=== PATIENT | female | born 1990 | race Caucasian/White ===

== ENCOUNTER 2017-06-01 18:25 | Inpatient (IN) | payer BC, MEDICAID ==
[2017-06-01] MEDS ORDERED: Misoprostol 200 MCG Tab PO PRN (19:24)
[2017-06-01] MEDS ORDERED: Methylergonovine 0.2 MG/1 ML Amp IM PRN (19:24)
[2017-06-01] MEDS ORDERED: Nalbuphine 10 MG/1 ML Vial IVPUSH PRN (19:24)
[2017-06-01] MEDS ORDERED: Water For Irrigation,Sterile 1,000 ML Container IRR PRN (19:24)
[2017-06-01] MEDS ORDERED: Lidocaine 1% 50 ML MDV INJECT PRN (19:24)
[2017-06-01] MEDS ORDERED: Sodium Chloride 0.9% 10 ML Syringe FLUSH PRN (19:24)
[2017-06-01] MEDS ORDERED: Carboprost Tromethamine 250 MCG/1 ML Amp IM PRN (19:24)
[2017-06-01] MEDS ORDERED: Butorphanol 1 MG/ML SDV IVPUSH PRN (19:24)
[2017-06-01] MEDS ORDERED: Sodium Chloride 0.9% 2.5 ML Syringe FLUSH PRN (19:24)
[2017-06-01] MEDS ORDERED: Oxytocin/0.9 % Sodium Chloride 30 UNIT/500 ML BAG IV SCH (19:30)
[2017-06-01] MEDS: Lactated Ringers 1,000 ML IV SCH ×4 (20:10→23:17)
[2017-06-01] MEDS ORDERED: Ropivacaine 0.2% 2 MG/ML 20 ML SDV ONE (20:43)
[2017-06-01] MEDS ORDERED: Ropivacaine HCl/PF 100 ML ONE (20:43)
[2017-06-01] MEDS ORDERED: fentaNYL 100 MCG/2 ML SDV ONE (20:43)
--- NOTE | 2017-06-01 21:10 | PCM.PREANE ---
Preanesthetic Assessment - Procedure Proposed Procedure: epidural - Anesthesia/Transfusion/Family Hx Anesthesia History: Prior Anesthesia Without Reaction Family History of Anesthesia Reaction: No - Review of Systems Other: Reports: None - Physical Assessment Height: 5 ft 4 in Weight: 76.204 kg ASA Class: 2 Mental Status: Alert & Oriented x3 Airway Class: Mallampati = 1 Dentition: Reports: Normal Dentition Thyro-Mental Finger Breadths: 3 Mouth Opening Finger Breadths: 3 ROM/Head Extension: Full - Lab Values: Laboratory Last Values WBC 14.24 K/uL (4.0-11.0) H 06/01/17 19:39 RBC 3.90 M/uL (4.30-5.90) L 06/01/17 19:39 Hgb 12.5 g/dL (12.0-16.0) 06/01/17 19:39 Hct 36.4 % (36.0-46.0) 06/01/17 19:39 MCV 93.3 fL (80.0-98.0) 06/01/17 19:39 MCH 32.1 pg (27.0-32.0) H 06/01/17 19:39 MCHC 34.3 g/dL (31.0-37.0) 06/01/17 19:39 RDW Std Deviation 48.9 fl (28.0-62.0) 06/01/17 19:39 RDW Coeff of Randal 14 % (11.0-15.0) 06/01/17 19:39 Plt Count 208 K/uL (150-400) 06/01/17 19:39 MPV 10.10 fL (7.40-12.00) 06/01/17 19:39 Nucleated RBC % 0.0 /100WBC 06/01/17 19:39 Nucleated RBCs # 0 K/uL 06/01/17 19:39 Membrane Rupture POSITIVE 06/01/17 18:40 Blood Type O NEGATIVE 06/01/17 19:39 Antibody Screen NEGATIVE 06/01/17 19:39 - Allergies Allergies/Adverse Reactions: Allergies Allergy/AdvReac Type Severity Reaction Status Date / Time No Known Allergies Allergy Verified 06/01/17 18:54 - Blood Blood Available: Yes Product(s) Available: PRBC - Acknowledgements Anesthesia Type Planned: Epidural Pt an Appropriate Candidate for the Planned Anesthesia: Yes Alternatives and Risks of Anesthesia Discussed w Pt/Guardian: Yes Pt/Guardian Understands and Agrees with Anesthesia Plan: Yes PreAnesthesia Questionnaire - Past Surgical History Other Musculoskeletal Surgeries/Procedures:: 2 acl repairs - HOME MEDS Home Medications: Home Meds PNV95/Ferrous Fumarate/FA [ Tablet] 1 each PO 06/01/17 [History] valACYclovir [Valtrex] 1,000 mg PO DAILY 06/01/17 [History] - CURRENT (IN HOUSE) MEDS Current Meds: Current Medications Butorphanol Tartrate (Stadol) 1 mg IVPUSH Q1H PRN PRN Reason: Pain Carboprost Tromethamine (Hemabate Ds) 250 mcg IM ASDIRECTED PRN PRN Reason: Post Hemorrhage Lactated Ringer's (Ringers, Lactated) 1,000 mls @ 150 mls/hr IV ASDIRECTED SHILPI Last Admin: 06/01/17 21:04 Dose: 150 mls/hr Oxytocin/Sodium Chloride (Oxytocin 30 Unit/500 Ml-Ns) 30 unit in 500 mls @ 2 mls/hr IV TITRATE [facility] Lidocaine HCl (Xylocaine 1%) 50 ml INJECT .ONCE PRN PRN Reason: Laceration repair Methylergonovine Maleate (Methergine) 0.2 mg IM ASDIRECTED PRN PRN Reason: Post Hemorrhage Misoprostol (Cytotec) 200 mcg PO .ONCE PRN PRN Reason: Post Hemorrhage Nalbuphine HCl (Nubain) 10 mg IVPUSH Q1H PRN PRN Reason: Pain (severe 7-10) Sodium Chloride (Saline Flush) 10 ml FLUSH ASDIRECTED PRN PRN Reason: Keep Vein Open Sodium Chloride (Saline Flush) 2.5 ml FLUSH ASDIRECTED PRN PRN Reason: Keep Vein Open Sterile Water (Sterile Water For Irrigation) 1,000 ml IRR ASDIRECTED PRN PRN Reason: delivery Discontinued Medications Fentanyl (Sublimaze) Confirm Administered Dose 200 mcg .ROUTE .STK-MED ONE Stop: 06/01/17 20:44 Ropivacaine (Naropin 0.2%) Confirm Administered Dose 100 mls @ as directed .ROUTE .STK-MED ONE Stop: 06/01/17 20:44 Ropivacaine (Naropin 0.2%) Confirm Administered Dose 20 ml .ROUTE .STK-[facility] ONE Stop: 06/01/17 20:44
[2017-06-02] MEDS ORDERED: Lanolin 100% Cream 7 GM Tube TOP PRN (02:40)
[2017-06-02] MEDS ORDERED: Ibuprofen 400 MG Tab PO PRN (02:40)
[2017-06-02] MEDS ORDERED: oxyCODONE 5 MG Tab PO PRN (02:40)
[2017-06-02] MEDS ORDERED: Docusate Sodium 100 MG Cap PO PRN (02:40)
[2017-06-02] MEDS ORDERED: Acetaminophen 500 MG Tab PO PRN ×2 (02:40)
[2017-06-02] MEDS ORDERED: Witch Hazel Medicated Pads 40/Jar TOP PRN (02:40)
[2017-06-02] MEDS ORDERED: Bisacodyl 10 MG Supp RECTAL PRN (02:40)
[2017-06-02] MEDS ORDERED: Benzocaine/Menthol 20%-0.5% Spray 78 GM Cannister TOP PRN (02:40)
[2017-06-02] MEDS: Ibuprofen 800 MG Tab PO PRN ×3 (03:14→23:32)
--- NOTE | 2017-06-02 04:29 | OR ---
SURGEON: MIKAEL WELLINGTON DATE OF PROCEDURE: 06/02/2017 PREOPERATIVE DIAGNOSIS: A 27-year-old, -0-0-1 at 39 weeks 4 days, admitted in early labor with spontaneous rupture of membranes and history of herpes, on Valtrex suppression. O negative. GBS negative. POSTOPERATIVE DIAGNOSIS: Status post normal spontaneous vaginal delivery. PROCEDURE: Normal spontaneous vaginal delivery. ANESTHESIA: Epidural. ESTIMATED BLOOD LOSS: 200 mL. FINDINGS: A live female delivered at 1:53 a.m. scores were 9, 9. Weight of the baby was 3790 g. EBL was 200 mL. True cord around the knot. 3-vessel cord. No laceration. BRIEF HISTORY: She was a low risk patient, monitored at [facility] from 8 week. She had an uncomplicated . She came in complaining of contractions and leakage of fluid. AmniSure was done, which was positive. When she came, she was 3-4, 50, -2. The patient then made progress on her own to 5 cm. At this point, the fore-bag was ruptured. The patient subsequently made change 7, 90, -1, then to 9, 100, -1, and she became fully dilated. The patient had good pushing effort, she pushed for about 50 minutes. DESCRIPTION OF PROCEDURE: With the patient's pushing effort, the head was noted to rotate from the OP position to the DIMA and spontaneously delivered, and after delivery of the head, the shoulders were delivered. There was cord noted around the neck. The shoulders were delivered followed by the body of the . The was placed on the mother. Delayed cord clamping was observed. The cord was clamped and cut. The Pitocin was started. The placenta was delivered via controlled cord traction, and perineum was inspected, there was noted to be no laceration. Hemostasis was noted. Fundus was firm. All instrument count and pad count were correct x2. The patient tolerated the procedure. MEME COLEMAN /[id number] MTDD
--- NOTE | 2017-06-02 08:10 | PCM48HPAN ---
Post Anesthesia Note - EVALUATION WITHIN 48HRS OF ANESTHETIC Vital Signs in Normal Range: Yes Patient Participated in Evaluation: Yes Respiratory Function Stable: Yes Airway Patent: Yes Cardiovascular Function Stable: Yes Hydration Status Stable: Yes Pain Control Satisfactory: Yes Nausea and Vomiting Control Satisfactory: Yes Mental Status Recovered: Yes
[2017-06-03] MEDS: Ibuprofen 800 MG Tab PO PRN (10:43)
--- NOTE | 2017-06-03 12:28 | PCM.PNPP ---
- General Info Date of Service: 06/03/17 Functional Status: Reports: Pain Controlled, Tolerating Diet, Ambulating, Urinating - Review of Systems General: Denies: Fever, Weakness, Chills HEENT: Denies: Headaches Pulmonary: Denies: Shortness of Breath Cardiovascular: Denies: Chest Pain, Palpitations Genitourinary: Denies: Dysuria, Incontinence, Retention Musculoskeletal: Reports: No Symptoms Skin: Reports: No Symptoms Neurological: Reports: No Symptoms Psychiatric: Reports: No Symptoms - General Info Date of Service: 06/03/17 - Patient Data Vital Signs - Most Recent: Last Vital Signs Temp 36.7 C 06/03/17 09:00 Pulse 61 06/03/17 09:00 Resp 17 06/03/17 09:00 BP 111/68 06/03/17 09:00 Pulse Ox 97 06/03/17 09:00 Weight - Most Recent: 168 lb Lab Results - Last 24 Hours: Laboratory Results - last 24 hr 06/02/17 06/03/17 Range/Units 03:17 05:27 Hgb 12.3 (12.0-16.0) g/dL Hct 37.1 (36.0-46.0) % Screen NEGATIVE (NEGATIVE) RhIG Candidate? YES Rhogam Indicated YES, BABY RH POS H Med Orders - Current: Current Medications Acetaminophen (Tylenol Extra Strength) 500 mg PO Q4H PRN PRN Reason: Pain Acetaminophen (Tylenol Extra Strength) 1,000 mg PO Q4H PRN PRN Reason: Pain Benzocaine/Menthol (Dermoplast Pain Relief 20%-0.5% [place]) 78 gm TOP ASDIRECTED PRN PRN Reason: Perineal Comfort Measure Last Admin: 06/02/17 03:15 Dose: 1 applic Bisacodyl (Dulcolax) 10 mg RECTAL .ONCE PRN PRN Reason: Constipation Carboprost Tromethamine (Hemabate Ds) 250 mcg IM ASDIRECTED PRN PRN Reason: Post Hemorrhage Docusate Sodium (Colace) 100 mg PO BID PRN PRN Reason: Constipation Emollient Ointment (Lansinoh Hpa) 0 gm TOP ASDIRECTED PRN PRN Reason: Sore Nipples Last Admin: 06/02/17 03:15 Dose: 1 applic Lactated Ringer's (Ringers, Lactated) 1,000 mls @ 150 mls/hr IV ASDIRECTED [facility] Last Admin: 06/01/17 23:17 Dose: 150 mls/hr Oxytocin/Sodium Chloride (Oxytocin 30 Unit/500 Ml-Ns) 30 unit in 500 mls @ 2 mls/hr IV TITRATE [facility] Last Admin: 06/02/17 02:00 Dose: 2 mls/hr Ibuprofen (Motrin) 400 mg PO Q4H PRN PRN Reason: Pain Ibuprofen (Motrin) 800 mg PO Q6H PRN PRN Reason: Pain Last Admin: 06/03/17 10:43 Dose: 800 mg Lidocaine HCl (Xylocaine 1%) 50 ml INJECT .ONCE PRN PRN Reason: Laceration repair Methylergonovine Maleate (Methergine) 0.2 mg IM ASDIRECTED PRN PRN Reason: Post Hemorrhage Misoprostol (Cytotec) 200 mcg PO .ONCE PRN PRN Reason: Post Hemorrhage Oxycodone HCl (Oxycodone) 5 mg PO Q2H PRN PRN Reason: Pain Sodium Chloride (Saline Flush) 10 ml FLUSH ASDIRECTED PRN PRN Reason: Keep Vein Open Sodium Chloride (Saline Flush) 2.5 ml FLUSH ASDIRECTED PRN PRN Reason: Keep Vein Open Sterile Water (Sterile Water For Irrigation) 1,000 ml IRR ASDIRECTED PRN PRN Reason: delivery Last Admin: 06/02/17 02:25 Dose: 1,000 ml Witch Lorene (Tucks) 1 pad TOP ASDIRECTED PRN PRN Reason: comfort care Last Admin: 06/02/17 03:16 Dose: 1 applic Discontinued Medications Butorphanol Tartrate (Stadol) 1 mg IVPUSH Q1H PRN PRN Reason: Pain Fentanyl (Sublimaze) Confirm Administered Dose 200 mcg .ROUTE .STK-MED ONE Stop: 06/01/17 20:44 Last Admin: 06/02/17 08:36 Dose: Not Given Ropivacaine (Naropin 0.2%) Confirm Administered Dose 100 mls @ as directed .ROUTE .STK-MED ONE Stop: 06/01/17 20:44 Last Admin: 06/02/17 08:36 Dose: Not Given Nalbuphine HCl (Nubain) 10 mg IVPUSH Q1H PRN PRN Reason: Pain (severe 7-10) Ropivacaine (Naropin 0.2%) Confirm Administered Dose 20 ml .ROUTE .STK-MED ONE Stop: 06/01/17 20:44 Last Admin: 06/02/17 08:35 Dose: Not Given - Infant Interaction Disposition, : in Room with Family Interaction: Holding Infant Infant Feeding: Bottle Fed , Breastfed Infant; Nursed Well Support Person: - Recovery Exam Fundal Tone: Firm Fundal Level: 1 Fingerbreadths Below Umbilicus Fundal Placement: Midline Lochia Amount: Small Lochia Color: Rubra/Red Perineum Description: Intact, Minimal Bruising/Swelling Episiotomy/Laceration: None Bladder Status: Voiding Urinary Elimination: Voided - Exam General: Alert, Oriented Lungs: Clear to Auscultation, Normal Respiratory Effort Cardiovascular: Regular Rate, Regular Rhythm GI/Abdominal Exam: Normal Bowel Sounds Extremities: Non-Tender, Pedal Edema Neurological: No New Focal Deficit Psy/Mental Status: Alert, Normal Affect, Normal Mood - Problem List & Annotations (1) Vaginal delivery SNOMED Code(s): 194111819 Code(s): O80 - ENCOUNTER FOR FULL-TERM UNCOMPLICATED DELIVERY Status: Acute Current Visit: Yes - Problem List Review Problem List Initiated/Reviewed/Updated: Yes - Assessment Assessment:: PPD#1 s/p , stable and afebrile Clinically stable for discharge - Plan Plan:: Discharge instructions reviewed Nothing in the vagina for 6 weeks Bleeding and infection precautions reviewed blues and depression S/S reviewed Follow up in 6 weeks
== END 2017-06-03 14:40 | disposition home or self-care (01) | DRG 560 ==
LOC: MW.OBCHECK 18:25 → MW.OB 18:25 → MW.OBCHECK 19:24 → MW.OB 19:24 → OBSVTOIN 06-02 01:53 → MW.OB 06-02 05:00
PROVIDERS: ADMIT Obstetrics & Gynecology; ATTEND Obstetrics & Gynecology
PROC: 10E0XZZ Delivery of Products of Conception, External Approach (ICD-10-PCS; principal; 2017-06-02)
DX: O42.02 Full-term premature rupture of membranes, onset of labor within 24 hours of rupture (principal); O98.32 Other infections with a predominantly sexual mode of transmission complicating childbirth; A60.00 Herpesviral infection of urogenital system, unspecified; O69.1XX0 Labor and delivery complicated by cord around neck, with compression, not applicable or unspecified; Z3A.39 39 weeks gestation of pregnancy; Z37.0 Single live birth
CPT/HCPCS: 01967; 36415; 51702; 59025; 59409; 84112; 85014; 85018; 85027; 85460; 86850; 86900; 86901; A9270-GY; J2590; J2790; J2795; J3010; J7120